=== PATIENT | female | born 1950 | race Asian ===

== ENCOUNTER 2018-07-29 08:08 | Day surgery (SDC) | payer MEDICARE, BC ==
[~2018-07-29] VITALS: Ht 154.9 cm; Wt 61.7 kg
[2018-07-29] MEDS ORDERED: DILTIAZEM 24HR360 MG PO (08:33)
[2018-07-29] MEDS ORDERED: LOSARTAN-HCTZ1 EAC2 PO (08:34)
[2018-07-29] MEDS ORDERED: PRAVACHOL40 MG PO (08:34)
[2018-07-29] MEDS ORDERED: TERAZOSIN HCL2 MG PO (08:34)
[2018-07-29] MEDS ORDERED: DULOXETINE HCL60 MG PO (08:34)
[2018-07-29] MEDS ORDERED: FISH OIL 1,0001 EACH PO (08:35)
[2018-07-29] MEDS ORDERED: ONE DAILY MULT1 EAC1 PO (08:35)
[2018-07-29] MEDS ORDERED: CALCIUM CITRAT1 EA13 PO (08:36)
[2018-07-29] MEDS ORDERED: ASPIR-LOW81 MG PO (08:37)
[2018-07-29] MEDS ORDERED: VITAMIN B-121000 MCG PO (08:37)
[2018-07-29] MEDS ORDERED: VITAMIN D2000 UNIT PO (08:37)
[2018-07-29] MEDS ORDERED: PRESERVISION A1 EACH PO (08:38)
--- NOTE | 2018-07-29 09:53 | NUR ---
07/29/18 0953 Renee Castro 0977 PATIENT ARRIVES TO PACU SLEEPING, AWAKENS WITH VERBAL STIMULI, THEN BACK TO SLEEP. RESP EVEN AND UNLABORED, NC TURNED OFF ON ARRIVAL TO PACU WITH SATS >94%. PATIENT PASSING GAS.
--- NOTE | 2018-07-29 18:36 | OR ---
[facility] [address], [place] [address] Signed DATE OF OPERATION: 07/29/2018 SURGEON: Summer Tubbs MD PREOPERATIVE DIAGNOSES: 1. Screening. 2. Internal hemorrhoids. POSTOPERATIVE DIAGNOSIS: Internal hemorrhoids. PROCEDURE: Colonoscopy without biopsy. ESTIMATED BLOOD LOSS: None. INDICATIONS: Farhad is a 68-year-old female who returns now for a 10-year followup screening colonoscopy. She has no lower GI complaints. She is known to have internal hemorrhoids. No family history of colon cancer or polyps. In the office, I gave Farhad and her a pamphlet on colonoscopy and we reviewed that together. They both understand colonoscopy quite well. There is risk including, but not limited to gas bloating, crampy abdominal pain, bleeding, perforation, requiring surgery, and missed diagnosis. We also discussed the need for IV conscious sedation. They had expressed understanding and wished to proceed. PROCEDURE NOTE: Farhad was taken into our endoscopy suite and placed in the left lateral decubitus position. She was given IV sedation with 6 mg of Versed and 150 mcg of fentanyl. Digital rectal exam was performed and this was unremarkable. She has very mild anal sphincter tone after her sedation. The adult colonoscope was introduced and advanced under direct visualization the camera. It took a little extra sedation and some abdominal compression in order to advance the scope into the cecum itself. Her prep was quite good. The scope was slowly withdrawn. We took pictures throughout for photodocumentation. We saw no polyps or diverticula anywhere in the colon or rectum. We did our best to retroflex the scope in the rectum. However, Farhad was small at 5 foot 1 inches, 136 pounds, and a body mass index of 25. We simply did not have enough room to retroflex the scope. We did withdraw the scope slowly and carefully and she does have some internal hemorrhoids. After this, the gas had been suctioned out and the Electronically Signed By: SUMMER TUBBS MD 07/29/18 1836 PATIENT NAME: FARHAD PIRES OPERATIVE REPORT DATE OF : 46 REPORT #: [id number] PHYSICIAN: SUMMER TUBBS MD PCP: NO PRIMARY CARE PHYSICIAN REPORT IS CONFIDENTIAL AND NOT TO BE RELEASED WITHOUT AUTHORIZATION [facility] [address], [place] [address] Signed colonoscope removed. Farhad tolerated the procedure quite well. RECOMMENDATIONS: Farhad is welcome to return in 10 years for a repeat screening colonoscopy so long as her health and functional status holds up. MD GUNNER Kam/KAMILLEL /[id number] cc: ISIDRO Delgado MD Copies: SUMMER TUBBS MD ~ Electronically Signed By: SUMMER TUBBS MD 07/29/18 1836 PATIENT NAME: FARHAD PIRES OPERATIVE REPORT DATE OF : 46 REPORT #: [id number] PHYSICIAN: SUMMER TUBBS MD PCP: NO PRIMARY CARE PHYSICIAN REPORT IS CONFIDENTIAL AND NOT TO BE RELEASED WITHOUT AUTHORIZATION
== END 2018-07-29 10:30 | disposition home or self-care (01) ==
LOC: DS 08:08 → OPS 08:08 → DS 09:45 → OPS 10:30
PROVIDERS: Colon & Rectal Surgery
PROC: 0DJD8ZZ Inspection of Lower Intestinal Tract, Via Natural or Artificial Opening Endoscopic (ICD-10-PCS; principal; 2018-07-29 09:45)
DX: Z12.11 Encounter for screening for malignant neoplasm of colon (principal); K64.8 Other hemorrhoids; I10 Essential (primary) hypertension; E78.00 Pure hypercholesterolemia, unspecified
CPT/HCPCS: G0121; 99153; G0500; J2250; J3010; J7120

== ENCOUNTER 2022-05-26 08:30 | Day surgery (SDC) | payer MEDICARE, BC ==
[~2022-05-26] VITALS: Ht 154.9 cm; Wt 61.4 kg
[~2022-05-26 08:30] MED LIST: ASPIR-LOW81 MG PO; CALCIUM CITRAT1 EA13 PO; DILTIAZEM 24HR360 MG PO; DULOXETINE HCL60 MG PO; FISH OIL 1,0001 EACH PO; LOSARTAN-HCTZ1 EAC2 PO; ONE DAILY MULT1 EAC1 PO; PRAVACHOL40 MG PO; PRESERVISION A1 EACH PO; TERAZOSIN HCL2 MG PO; VITAMIN B-121000 MCG PO; VITAMIN D2000 UNIT PO
--- NOTE | 2022-05-26 11:45 | NUR ---
PT BACK TO UNIT FROM PACU VIA STRETCHER. REPORT RECIEVED FROM KATHLEEN MARTINEZ. PT RESTING IN BED A&O X4. PT REPORTS NO PAIN, NAUSEA, N/T, DIZZINESS, SOB AT THIS TIME. PT ON RA W/O2 SATS AT 95%. NO SIGNS OF BLEEDING AT THIS TIME. PT TOLERATES VANILLA PUDDING AND ICE WATER W/OUT DIFFICULTY SWALLOWING. NO SIGNS OF BLEEDING AT THIS TIME. IV SITE WNL. PT REPORTS NEED TO VOID, AMBULATED W/OUT DIFFICULTY OR DIZZINESS TO RESTROOM, SM VOID W/SM AMOUNT OF SEROUS FLUID. PT NOW BACK IN BED DRINKING WATER. AT BEDSIDE. CALL LIGHT WITHIN REACH, NO FURTHER NEEDS AT THIS TIME.
--- NOTE | 2022-05-26 11:48 | NUR ---
05/26/22 1148 April Ferreira 1110 PT ARRIVED IN PACU SLEEPY WITH HOPSON PRESENT. 1120 PT AWAKENS WITH NO C/O'S. 1135 EMILIANA MEZA'Dwight. BALLOON INTACT. 1145 TO DS. REPORT GIVEN TO RN. SPOUSE AT BEDSIDE.
--- NOTE | 2022-05-26 12:15 | NUR ---
ANSWERED PT CALL LIGHT D/T NEED TO VOID. STANDBY ASSIST TO RESTROOM, 200 ML OUTPUT W/PINK TINGE OF SM SEROUS AMOUNT IN URINE. PT REPORTS NO PAIN OR BURNING W/URINATION AT THIS TIME. PT STANDBY ASSIST BACK TO ROOM AND NOW GETTING DRESSED. AT BEDSIDE. CALL LIGHT WITHIN REACH, NO FURTHER NEEDS AT THIS TIME.
--- NOTE | 2022-05-26 12:50 | NUR ---
PT DRESSED AND SITTING AT BEDSIDE. VSS. DISCHARGE INSTRUCTIONS PROVIDED AND PT STATED VERBAL UNDERSTANDING. IV DC'ED BY SERGE MARTINEZ, OBIE AND EUGENE IN PLACE. PT REPORTS NO PAIN OR NAUSEA AT THIS TIME AND NO DIZZINESS OR UNSTEADY GAIT WITH AMBULATION. PT TRANSPORTED VIA WC TO 'S TRUCK, ABLE TO AMBULATE WITHOUT DIFFICULTY INTO VEHICLE. PT STATES NO FURTHER NEEDS AND NO FURTHER QUESTIONS AT THIS TIME. ALL POSSESSIONS IN PT POSSESSION AT THIS TIME.
--- NOTE | 2022-05-27 14:59 | OR ---
[facility] [address] [place], [place] [address] Signed DATE OF OPERATION: 05/26/2022 SURGEON: Lexi Snell MD PREOPERATIVE DIAGNOSES: 1. Microhematuria. 2. Papillary 5 mm bladder neck mass. POSTOPERATIVE DIAGNOSES: 1. Microhematuria. 2. Papillary 5 mm bladder neck mass. NAMES OF PROCEDURES: 1. Diagnostic cystoscopy. 2. Transurethral resection of bladder tumor-small. ANESTHESIA: General. ESTIMATED BLOOD LOSS: Minimal. COMPLICATIONS: None. SPECIMENS: 5 mm bladder mass sent to pathology for evaluation. DRAINS: A 20-Cymraes two-way Gonzalez catheter, connected to gravity drainage. INDICATIONS FOR PROCEDURE: Farhad is a very pleasant 71-year-old female, who has been undergoing workup with me for asymptomatic microhematuria. She underwent a negative CT IVP and cytology. However, her diagnostic cystoscopy did reveal a papillary mass located on the anterior aspect of her bladder neck. 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 However, I told the patient that I could not be 100% sure without removing the lesion and sending it away for pathologic evaluation. The patient presents today to undergo transurethral resection of this papillary bladder lesion. Electronically Signed By: LEXI SNELL MD 05/27/22 1459 PATIENT NAME: FARHAD PIRES OPERATIVE REPORT DATE OF : 46 REPORT #: [id number] PHYSICIAN: LEXI SNELL MD PCP: SANIA SHARIF DO REPORT IS CONFIDENTIAL AND NOT TO BE RELEASED WITHOUT AUTHORIZATION [facility] [address] [facility] [place] [place] [address] Signed OPERATIVE FINDINGS: 1. On cystoscopy, there was no evidence of any suspicious masses or lesions or stones within the bladder wall proper. I am able to appreciate again a papillary 5 mm lesion located on the anterior aspect of the bladder neck. 2. The 5 mm papillary bladder mass was transurethrally resected very gently using a bipolar device. I made one swipe and removed the papillary mass without incident. I then gently cauterized the area for hemostasis. I was sure not to be overly aggressive in this area as I did not want to promote any potential incontinence in the future, i.e. via damage to her internal sphincter. 3. A 20-Cymraes two-way Gonzalez catheter was inserted into the patient's bladder at the end at the end of procedure for hemostasis reasons. DESCRIPTION OF PROCEDURE: After informed consent was obtained, the patient was taken back to the operating room. She was transferred from the [facility] to the operating room table, where general anesthesia was induced. She was placed in the dorsal lithotomy position and her genitalia were prepped and draped in a standard sterile fashion. Using a 32 degree lens on 22.5-Cymraes introducer, a diagnostic cystoscopy was performed. Please see the above findings. Ureteroscopy revealed the presence of a papillary mass located on the anterior aspect of the bladder neck. I switched the standard scope out for resectoscope with a 24-Cymraes loop. I very gently resected this papillary lesion via one bite. The 5 mm bladder lesion was extracted from the patient's bladder and placed in a specimen cup to be sent to pathology for evaluation. I then very gently cauterized the resected area on the patient's bladder neck. The patient's bladder was then drained and the cystoscope was removed. A 20-Cymraes two-way Gonzalez catheter was inserted into the patient's bladder for hemostasis purposes as I did not want to perform any other more significant cauterization in this delicate area. The procedure was then terminated. The patient tolerated the procedure well without any complication. She will now be transferred to the postanesthesia care unit in stable condition. DISPOSITION: I discussed the details of today's procedure with the patient's and answered all of his questions. She will be scheduled return to clinic in two weeks to discuss her pathology results. Her Gonzalez catheter will be removed in approximately 0.5 hour and she will be allowed to void on her own prior to discharge. She will be sent home today with Bactrim double strength for a total of 5 days along with oxycodone 5 mg one tablet p.o. q.6 hours p.r.n. pain, dispense #12. Lexi Snell MD Electronically Signed By: LEXI SNELL MD 05/27/22 1459 PATIENT NAME: FARHAD PIRES OPERATIVE REPORT DATE OF : 46 REPORT #: [id number] PHYSICIAN: LEXI SNELL MD PCP: SANIA SHARIF DO REPORT IS CONFIDENTIAL AND NOT TO BE RELEASED WITHOUT AUTHORIZATION [address] [address] Signed AR/MODL /[id number] Copies: ~ Electronically Signed By: LEXI SNELL MD 05/27/22 1459 PATIENT NAME: FARHAD PIRES OPERATIVE REPORT DATE OF : 46 REPORT #: [id number] PHYSICIAN: LEXI SNELL MD PCP: SANIA SHARIF DO REPORT IS CONFIDENTIAL AND NOT TO BE RELEASED WITHOUT AUTHORIZATION
--- NOTE | 2022-05-28 16:25 | PATH ---
[facility] [place] [facility] [address] [facility] [place], [place] [address] Signed SPECIMEN(S): A BLADDER NECK LESION SPECIMEN SOURCE: A. BLADDER NECK LESION CLINICAL HISTORY: Asymptomatic microscopic hematuria FINAL PATHOLOGIC DIAGNOSIS: Bladder, neck, biopsy: - Benign urothelial tissue with cystitis glandularis. BRP:[facility]:C2NR MICROSCOPIC EXAMINATION: Histologic sections of all submitted blocks are examined by light microscopy. These findings, together with the gross examination, support the pathologic diagnosis. GROSS DESCRIPTION: The specimen, labeled and designated "Kim bladder neck lesion," is received in formalin and consists of one fragment of red-brown soft tissue (0.5 cm in greatest dimension). The specimen is submitted entirely in cassette A1. AC (under the direct supervision of a pathologist) The Gross Description was prepared using a voice recognition system. The report was reviewed for accuracy; however, sound-alike word errors, addition and/or deletions may occur. If there is any question about this report, please contact Client Services. PERFORMING LABORATORY: The technical component was performed by [facility], [address] [place] [address] (CLIA# [id number]). Professional interpretation was performed by [facility], [address] [address] (CLIA#: [id number]). Diagnostician: Cezar Mayorga MD Pathologist Electronically Signed 05/28/2022 PATIENT NAME: JOSE MANUEL PIRES PATHOLOGY DATE OF : 46 REPORT #: [id number] PHYSICIAN: BRISEIDA DOUGLAS PCP: SANIA SHARIF DO REPORT IS CONFIDENTIAL AND NOT TO BE RELEASED WITHOUT AUTHORIZATION
== END 2022-05-26 12:50 | disposition home or self-care (01) ==
LOC: DS 08:30
PROVIDERS: ATTEND Urology
PROC: 0TBC8ZX Excision of Bladder Neck, Via Natural or Artificial Opening Endoscopic, Diagnostic (ICD-10-PCS; principal; 2022-05-26 10:30)
DX: N30.81 Other cystitis with hematuria (principal); I10 Essential (primary) hypertension; E78.00 Pure hypercholesterolemia, unspecified
CPT/HCPCS: J0690; J1100; J1885; J2405; J2704; J2765; J3010; J7121